=== PATIENT | female | born 1980 | race Caucasian/White ===

== ENCOUNTER 2018-11-01 09:52 | Emergency (ER) | payer OTHER ==
[~2018-11-01] VITALS: Wt 78.0 kg
[~2018-11-01 09:52] MED LIST: PREN1TAB17 PO
[2018-11-01 09:53] VITALS: BP 122/66; PULSE 138; RESP 18
[2018-11-01] MEDS ORDERED: KETOROLAC 15 MG INJ IV STA (10:47)
--- NOTE | 2018-11-01 10:51 | ERD ---
ER Documentation Chief Complaint Chief Complaint SRE THROAT,EAR PAIN HPI 38-year-old female, previously healthy, presents to the emergency department, complaining of 2 days with acute onset of headache, severe sore throat, radiating to bilateral ears, fever and general malaise. No medications taken at this time. The patient denies cough, no runny nose. ROS All systems reviewed and are negative except as per history of present illness. Medications Home Meds Active Scripts Azithromycin* (Zithromax*) 250 Mg Tablet, 250 MG PO .ZPACK DIRECTED, #6 TAB TAKE 500 MG (2 TABS) THE FIRST DAY THEN 250 MG (1 TAB) DAYS 2-5 Prov:BRADY NGUYEN MD 11/01/18 Ibuprofen* (Motrin*) 600 Mg Tab, 600 MG PO Q8, #30 TAB Prov:BRADY NGUYEN MD 11/01/18 Reported Medications Vit-Iron Fumarate-FA ( Tablet) 1 Each Tablet, 1 EACH PO DAILY 11/05/13 Allergies Allergies: Coded Allergies: Penicillins (Verified Allergy, Intermediate, 03/21/14) Uncoded Allergies: PENICILLIN (Adverse Reaction, Intermediate, 02/17/14) PMhx/Soc History of Surgery: Yes () Hx Alcohol Use: No Hx Substance Use: No Hx Tobacco Use: No FmHx Family History: No diabetes, No coronary disease Physical Exam Vitals Vital Signs Date Temp Pulse Resp B/P (MAP) Pulse Ox O2 O2 Flow FiO2 Time Delivery Rate 11/01/18 100.1 12:34 11/01/18 101.8 11:49 11/01/18 101.8 11:34 11/01/18 102.1 138 18 122/66 99 09:53 (84) Physical Exam Const: Mild distress due to pain and fever Head: Atraumatic Eyes: Normal Conjunctiva ENT: Erythematous oropharynx, tonsils enlarged, with bilateral exudates, normal External Ears, Nose and Mouth. Neck: Full range of motion. No meningismus. Resp: Clear to auscultation bilaterally Cardio: Regular rate and rhythm, no murmurs Abd: Soft, non tender, non distended. Normal bowel sounds Skin: No petechiae or rashes Back: No midline or flank tenderness Ext: No cyanosis, or edema Neur: Awake and alert Psych: Normal Mood and Affect Results 24 hrs Laboratory Tests Test 11/01/18 11:10 11/01/18 11:17 POC Beta HCG, Qualitative NEGATIVE Bedside Urine pH (LAB) 7.0 Bedside Urine Protein (LAB) 1+ Bedside Urine Glucose (UA) Negative Bedside Urine Ketones (LAB) Negative Bedside Urine Blood 2+ Bedside Urine Nitrite (LAB) Negative Bedside Urine Leukocyte Esterase (L 3+ Current Medications Medications Dose Sig/Katina Start Time Status Last (Trade) Ordered Route PRN Stop Time Admin Dose Reason Admin Ketorolac 15 mg ONCE STAT 11/01/18 DC 11/01/18 Tromethamine IV 10:47 11:29 (Toradol) 11/01/18 10:53 6 mg ONCE ONCE 11/01/18 DC 11/01/18 Dexamethasone IV 11:00 11:29 (Decadron) 11/01/18 11:01 Clindamycin 600 mg ONCE ONCE 11/01/18 Cancel Phosphate IV 11:00 (Cleocin) 11/01/18 11:01 Sodium 500 ml @ Q1H ONCE 11/01/18 DC 11/01/18 Chloride 500 mls/hr IV 11:00 11:32 11/01/18 11:59 Clindamycin 50 ml @ 50 ONCE IVPB 11/01/18 DC 11/01/18 HCl/ mls/hr 11:30 11:32 Dextrose 11/01/18 12:34 650 mg ONCE ONCE 11/01/18 DC 11/01/18 Acetaminophen PO 12:00 11:49 (Tylenol 11/01/18 12:01 Tab) Procedures/MDM Differential diagnosis include but not limited to: Tonsillar/pharyngeal infection bacterial/viral/fungal, parotitis, allergies, GERD. Less likely peritonsillar abscess, retropharyngeal abscess. No signs of upper respiratory obstruction Physical examination and clinical presentation consistent most likely with acute suppurative tonsillitis. Centor criteria 4/5. During the ED course the patient remained stable, fever resolved with medications given in the ER, no new complaints. Clinical impression discussed with the patient who agrees with management. The patient is stable to be treated outpatient and will be discharged home with a Rx for antibiotic and ibuprofen. Some side effects of prescribed medications (headache, rash, nausea, vomiting, diarrhea, drowsiness, habituation, bleeding, hypertension, interactions with other medications) were reviewed. The patient was instructed to follow up with the primary care provider in the next 48h. If symptoms persist, worsen or new symptoms develop, then patient should return to the ED immediately. Disclaimer: Inadvertent spelling and grammatical errors are likely due to EHR/dictation software use and do not reflect on the overall quality of patient care. Also, please note that the electronic time recorded on this note does not necessarily reflect the actual time of the patient encounter. Departure Diagnosis: Primary Impression: Acute suppurative tonsillitis Condition: Stable Additional Instructions: Thank you very much for allowing us to participate in your care. Your health and safety is our top priority at [facility]. Call your primary care doctor TOMORROW for an appointment during the next 2-4 days and bring all the information and medications prescribed. Have prescriptions filled and follow precisely the directions on the label. If the symptoms get worse and your provider is unavailable, return to the Emergency Department immediately. BRADY NGUYEN MD Nov 01, 2018 10:51
[2018-11-01] MEDS ORDERED: CLINDAMYCIN 600 MG INJ IV ONE (11:00)
[2018-11-01] MEDS ORDERED: DEXAMETHASONE 10 MG/ML 1 ML INJ IV ONE (11:00)
[2018-11-01] MEDS ORDERED: SOD CHLORIDE 0.9% 500 ML IV ONE (11:00)
[2018-11-01] MEDS ORDERED: CLINDAMYCIN 600 MG/D5W (PMX) 50 ML IVPB SCH (11:30)
[2018-11-01] MEDS ORDERED: ACETAMINOPHEN 325 MG TAB PO ONE (12:00)
[2018-11-01] MEDS ORDERED: IBUP-1542 PO (12:04)
[2018-11-01] MEDS ORDERED: AZIT250T PO (12:21)
== END 2018-11-01 12:34 | disposition home or self-care (01) ==
LOC: FTE 09:52
DX: J03.90 Acute tonsillitis, unspecified (principal)
CPT/HCPCS: 81003; 81025; 96374; 96375; J1100; J1885; J7040; Z7502; Z7610